=== PATIENT | male | born 1960 | race Caucasian/White ===

== ENCOUNTER 2018-02-18 23:51 | Emergency (ER) | payer BC ==
[2018-02-19] MEDS: ACETAMINOPHEN 500 MG TAB PO (00:56)
== END 2018-02-19 01:01 | disposition home or self-care (01) ==
LOC: FTE 23:51
DX: S00.03XA Contusion of scalp, initial encounter (principal); I10 Essential (primary) hypertension; F17.210 Nicotine dependence, cigarettes, uncomplicated; Y04.8XXA Assault by other bodily force, initial encounter
CPT/HCPCS: 99283